=== PATIENT | female | born 1950 | race Caucasian/White ===

== ENCOUNTER 2018-01-01 07:30 | Inpatient (IN) | payer OTHER ==
[~2018-01-01] VITALS: Ht 154.9 cm; Wt 76.7 kg
[~2018-01-01 07:30] MED LIST: ADVIL200 M1 PO; ALIVE WOMEN'S1 EAC1 PO; AMOX1TAB12 PO; CLONAZEPAM1 MG PO; DOCUSATE SODIU100 MG PO; GABAPENTIN800 MG PO; PERCOCET 5-3251 EACH PO
[2018-01-09] MEDS ORDERED: COLACE100 MG PO (11:41)
[2018-01-09] MEDS ORDERED: NEURONTIN800 MG PO (11:41)
[2018-01-09] MEDS ORDERED: AMOX-CLAV 875-1 EACH PO (11:42)
[2018-01-09] MEDS ORDERED: CLONAZEPAM1 MG PO (11:42)
[2018-01-09] MEDS ORDERED: PERCOCET 5-3251 EACH PO (11:42)
== END 2018-01-10 17:23 | DRG 455 ==
LOC: O/R 01-09 04:50 → SURG 01-09 07:30
PROVIDERS: Orthopaedic Surgery Orthopaedic Surgery of the Spine
PROC: 0SG1071 Fusion of 2 or more Lumbar Vertebral Joints with Autologous Tissue Substitute, Posterior Approach, Posterior Column, Open Approach (ICD-10-PCS; 2018-01-09)
PROC: 0SG10AJ Fusion of 2 or more Lumbar Vertebral Joints with Interbody Fusion Device, Posterior Approach, Anterior Column, Open Approach (ICD-10-PCS; 2018-01-09)
PROC: 0ST20ZZ Resection of Lumbar Vertebral Disc, Open Approach (ICD-10-PCS; 2018-01-09)
PROC: 07DS3ZZ Extraction of Vertebral Bone Marrow, Percutaneous Approach (ICD-10-PCS; 2018-01-09)
PROC: 0SG10A0 Fusion of 2 or more Lumbar Vertebral Joints with Interbody Fusion Device, Anterior Approach, Anterior Column, Open Approach (ICD-10-PCS; principal; 2018-01-09 09:45)
DX: M47.26 Other spondylosis with radiculopathy, lumbar region (principal); M41.86 Other forms of scoliosis, lumbar region; M51.16 Intervertebral disc disorders with radiculopathy, lumbar region

== ENCOUNTER 2019-03-03 09:10 | Outpatient (CLI) | payer OTHER ==
[~2019-03-03 09:10] MED LIST changes: +AMOX-CLAV 875-1 EACH PO; +COLACE100 MG PO; +NEURONTIN800 MG PO
== END 2019-03-03 09:16 | disposition home or self-care (01) ==
LOC: LAB 09:10
DX: D68.8 Other specified coagulation defects (principal); E78.2 Mixed hyperlipidemia; N39.0 Urinary tract infection, site not specified; R07.89 Other chest pain

== ENCOUNTER 2020-03-10 11:29 | Outpatient (CLI) | payer OTHER | END 2020-03-10 11:34 | disposition home or self-care (01) | LOC: SONOGRAMA 11:29 → MAMO-SONO 13:15 | PROVIDERS: ATTEND Orthopaedic Surgery | DX: M75.31 Calcific tendinitis of right shoulder (principal); M25.511 Pain in right shoulder ==

== ENCOUNTER 2020-03-16 07:00 | Day surgery (SDC) | payer OTHER ==
[~2020-03-16] VITALS: Ht 157.5 cm; Wt 76.7 kg
[2020-03-16] MEDS ORDERED: DIAZEPAM5 MG PO (12:38)
[2020-03-16] MEDS ORDERED: PERCOCET 5-3251 EACH PO (12:38)
[2020-03-16] MEDS ORDERED: COLACE100 MG PO (12:38)
== END 2020-03-17 12:00 | disposition home or self-care (01) ==
LOC: CIR.AMB 07:00 → EDSTATUS 08:45 → SURH 08:45 → O/R 17:34 → SURG 17:34 → CIR.AMB 03-17 12:00 → SURG 03-17 15:00
PROVIDERS: ATTEND Orthopaedic Surgery Orthopaedic Surgery of the Spine
DX: M50.321 Other cervical disc degeneration at C4-C5 level (principal); M50.323 Other cervical disc degeneration at C6-C7 level; M50.322 Other cervical disc degeneration at C5-C6 level; M48.02 Spinal stenosis, cervical region; Z20.822 Contact with and (suspected) exposure to COVID-19
CPT/HCPCS: 22551; 20930; 20939; 22552 ×2; 22846; 22853 ×3; C1776

== ENCOUNTER 2024-02-27 08:45 | Inpatient (IN) | payer OTHER ==
[2024-02-27 08:28] LABS: HEMATOCRIT 43.1 % (36.0-45.00); HEMOGLOBIN 14.6 g/dL (12.0-15.00); MEAN CELL VOLUME 92.1 fL (80.00-100.00); MEAN CORPUSCULAR HEMOGLOBIN 31.2 pg (27.00-32.0); MEAN CORPUSCULAR HGB CONC 33.9 g/dl (32.0-36.0); PLATELET COUNT 243 K/uL (150-450); RED BLOOD COUNT 4.68 M/uL (4.00-6.00); RED CELL DISTRIBUTION WIDTH 13.4 % (11.5-14.5)
[2024-02-27 08:28] LABS: URINE APPEARANCE Clear; URINE BILIRRUBIN Negative (NEGATIVE); URINE BLOOD Negative; URINE COLOR Yellow; URINE GLUCOSE Negative (NEGATIVE); URINE KETONE Negative (NEGATIVE); URINE LEUKOCYTE Small; URINE NITRATE Negative; URINE PROTEIN Negative (NEGATIVE); URINE UROBILINOGEN 0.2 E.U./dl
[2024-02-27 08:31] LABS: URINE BACTERIA 51.4 uL (0.0-1933); URINE EPITHELIAL CELLS 12.9 uL (0.0-38.8); URINE RBC 2.9 uL (0.0-20.8); URINE WBC 13.6 uL (0.0-23.2)
[~2024-02-27 08:45] MED LIST changes: +BACLOFEN10 MG PO; +DIAZEPAM5 MG PO; +FOSAMAX70 MG PO; +GABAPENTIN100 M2 PO; +MEDROLPACK PO; +OPTIMAL D3 M350 MCG PO; +PEPCID AC20 MG; +RESTORIL30 M1 PO; +ROSUVASTATIN CA10 MG PO; +TRAMADOL HCL E100 M1; +TYLENOL ARTHRI650 MG PO; +ZIPSOR25 MG
[2024-02-27 09:21] LABS: INR 1.01; PARTIAL THROMBOPLASTIN TIME 27.3 SECONDS (22.0-34.0)
[2024-02-27 09:34] LABS: CALCIUM 9.2 mg/dL (8.5-10.1); CREATININE SERUM 0.73 mg/dL (0.55-1.02); GFR 78.15; POTASSIUM 4.1 mEq/L (3.5-5.1); T4 TOTAL 11.52 UG/DL (4.8-13.9); TSH 1.35 uIU/mL (0.358-3.74)
[2024-03-20] MEDS ORDERED: MEDROLPACK PO (07:33)
[2024-03-20] MEDS ORDERED: PERCOCET 5-3251 EACH PO (07:33)
[2024-03-20] MEDS ORDERED: ZOFRAN8 MG PO (07:34)
[2024-03-20] MEDS ORDERED: AMOX-CLAV 875-1 EACH PO (07:34)
[2024-03-20] MEDS ORDERED: COLACE100 MG PO (07:34)
[2024-03-20] MEDS ORDERED: LYRICA150 MG PO (07:34)
[2024-03-20] MEDS ORDERED: HEMOSTATIC MATRIX WITH THROMBIN KIT TOP ONE (07:47)
[2024-03-20] MEDS ORDERED: METHYLPREDNISOLONE ACETATE 80 MG/ML VIAL ONE (07:47)
[2024-03-20] MEDS ORDERED: VANCOMYCIN HCL 1,000 MG VIAL IV ONE ×2 (08:45)
[2024-03-20] MEDS ORDERED: CEFAZOLIN SODIUM 1,000 MG VIAL IV ONE (08:45)
[2024-03-20] MEDS ORDERED: METHYLPREDNISOLONE SOD SUCC 125 MG VIAL IV ONE ×2 (08:45)
[2024-03-20] MEDS ORDERED: ISOPROPYL ALCOHOL 30 ML OUNCE TOP ONE (08:45)
[2024-03-20] MEDS ORDERED: MORPHINE SULFATE 4 MG/ML VIAL IV ONE (10:20)
== END 2024-03-20 12:35 | disposition home or self-care (01) | DRG 451 ==
LOC: ADM 10:15 → O/R 03-20 05:15 → CIR.AMB 03-20 07:00 → SURH 03-20 10:15 → EDSTATUS 03-20 10:15 → CIR.AMB 03-20 10:15 → SURH 03-20 11:40 → O/R 03-20 12:28 → CIR.AMB 03-21 10:15
PROVIDERS: ADMIT Orthopaedic Surgery Orthopaedic Surgery of the Spine; ATTEND Orthopaedic Surgery Orthopaedic Surgery of the Spine
PROC: 4A12X4Z Monitoring of Cardiac Electrical Activity, External Approach (ICD-10-PCS; 2024-03-20)
PROC: 0SG707Z Fusion of Right Sacroiliac Joint with Autologous Tissue Substitute, Open Approach (ICD-10-PCS; principal; 2024-03-20 07:00)
DX: M46.1 Sacroiliitis, not elsewhere classified (principal)